=== PATIENT | female | born 1960 | race Asian ===

== ENCOUNTER 2024-02-28 07:50 | Day surgery (SDC) | payer OTHER ==
[~2024-02-28] VITALS: Ht 152.4 cm; Wt 54.4 kg
[2024-02-28] MEDS ORDERED: fentaNYL citrate 0.05 MG/ML VIAL ONE (08:34)
[2024-02-28] MEDS ORDERED: MIDAZOLAM 2 MG/2 ML VIAL ONE (08:34)
[2024-02-28] MEDS: MIDAZOLAM 2 MG/2 ML VIAL IVP ONE (09:28)
== END 2024-02-28 10:38 | disposition home or self-care (01) ==
LOC: MOR 07:50 → MMU 07:50 → MOR 10:38
PROVIDERS: ATTEND Internal Medicine Gastroenterology
DX: R13.10 Dysphagia, unspecified (principal); K21.9 Gastro-esophageal reflux disease without esophagitis; E78.00 Pure hypercholesterolemia, unspecified; E03.9 Hypothyroidism, unspecified; Z90.710 Acquired absence of both cervix and uterus; Z98.891 History of uterine scar from previous surgery; Z80.0 Family history of malignant neoplasm of digestive organs; Z79.899 Other long term (current) drug therapy; Z98.890 Other specified postprocedural states
CPT/HCPCS: 36415; 43239; 86677; J2250; J3010